=== PATIENT | female | born 1955 | race Caucasian/White ===

== ENCOUNTER → 2023-06-09 | Outpatient (CLI) | payer MEDICARE, BC | END | disposition home or self-care (01) | LOC: Rad HDHVI 15:05 | PROVIDERS: ATTEND Internal Medicine Cardiovascular Disease | DX: I73.9 Peripheral vascular disease, unspecified (principal) | CPT/HCPCS: 93306 ==

== ENCOUNTER → 2023-07-29 | Outpatient (CLI) | payer MEDICARE, BC ==
[2023-07-29 13:32] VITALS: BP 109/58; PULSE 80; RESP 20; O2SAT 96
[2023-07-29] MEDS: POTASSIUM CHL 10 Meq TABLET PO ONE (13:42)
[2023-07-29] MEDS: FUROSEMIDE INJECTION 10 ML ONE (13:42)
[2023-07-29 13:45] VITALS: BP 127/76; PULSE 77; RESP 20; O2SAT 96
[2023-07-29] MEDS: FUROSEMIDE 100 MG/10ML VIAL IV ONE (13:47)
[2023-07-29] MEDS: POTASSIUM CHL 20 Meq TABLET PO ONE (13:49)
== END | disposition home or self-care (01) ==
LOC: CHF HDHVI 13:30
PROVIDERS: ATTEND Internal Medicine Cardiovascular Disease
DX: R60.9 Edema, unspecified (principal); I25.10 Atherosclerotic heart disease of native coronary artery without angina pectoris; I10 Essential (primary) hypertension; I25.2 Old myocardial infarction; E78.00 Pure hypercholesterolemia, unspecified; I73.9 Peripheral vascular disease, unspecified
CPT/HCPCS: 96374; G0463; J1940

== ENCOUNTER → 2023-08-17 | Outpatient (CLI) | payer MEDICARE, BC ==
[2023-08-17 13:13] VITALS: BP 130/60; PULSE 75; RESP 18; O2SAT 95
[2023-08-17] MEDS: FUROSEMIDE 100 MG/10ML VIAL IV ONE (13:15)
[2023-08-17] MEDS: POTASSIUM CHL 20 Meq TABLET PO ONE ×2 (13:15→13:22)
[2023-08-17] MEDS: FUROSEMIDE 40 MG/4 ML VIAL ONE (13:22)
[2023-08-17 14:02] VITALS: BP 110/62; PULSE 69; RESP 18; O2SAT 98
== END | disposition home or self-care (01) ==
LOC: CHF HDHVI 13:10
PROVIDERS: ATTEND Internal Medicine Cardiovascular Disease
DX: I10 Essential (primary) hypertension (principal); I25.10 Atherosclerotic heart disease of native coronary artery without angina pectoris; I25.2 Old myocardial infarction; E78.00 Pure hypercholesterolemia, unspecified
CPT/HCPCS: 96374; G0463; J1940

== ENCOUNTER → 2023-08-31 | Outpatient (CLI) | payer MEDICARE, BC ==
[~2023-08-31] VITALS: Ht 30.5 cm; Wt 0.5 kg
[2023-08-31 12:12] VITALS: BP 100/55; PULSE 70; RESP 16; O2SAT 96
[2023-08-31] MEDS: POTASSIUM CHL 20 Meq TABLET PO ONE (12:12)
[2023-08-31] MEDS: POTASSIUM CHL 10 Meq TABLET PO ONE (12:19)
[2023-08-31] MEDS: FUROSEMIDE INJECTION 10 ML ONE (12:19)
[2023-08-31] MEDS: FUROSEMIDE 100 MG/10ML VIAL IV ONE (12:26)
[2023-08-31 13:28] VITALS: BP 113/46; PULSE 69; RESP 16; O2SAT 96
== END | disposition home or self-care (01) ==
LOC: CHF HDHVI 10:44
PROVIDERS: ATTEND Internal Medicine Cardiovascular Disease
DX: R60.9 Edema, unspecified (principal); I25.10 Atherosclerotic heart disease of native coronary artery without angina pectoris; I10 Essential (primary) hypertension; I25.2 Old myocardial infarction; E78.00 Pure hypercholesterolemia, unspecified; I73.9 Peripheral vascular disease, unspecified
CPT/HCPCS: 96374; G0463; J1940

== ENCOUNTER → 2023-09-07 | Outpatient (CLI) | payer MEDICARE, BC ==
[~2023-09-07] VITALS: Ht 30.5 cm; Wt 0.5 kg
[2023-09-07 11:35] VITALS: BP 133/63; PULSE 90; RESP 16; O2SAT 96
[2023-09-07] MEDS: FUROSEMIDE INJECTION 10 ML ONE (11:45)
[2023-09-07] MEDS: POTASSIUM CHL 10 Meq TABLET PO ONE (11:45)
[2023-09-07] MEDS: FUROSEMIDE 100 MG/10ML VIAL IV ONE (11:51)
[2023-09-07] MEDS: POTASSIUM CHL 20 Meq TABLET PO ONE (11:54)
[2023-09-07 12:15] VITALS: BP 114/58; PULSE 73; RESP 16; O2SAT 96
== END | disposition home or self-care (01) ==
LOC: CHF HDHVI 11:25
PROVIDERS: ATTEND Internal Medicine Cardiovascular Disease
DX: I10 Essential (primary) hypertension (principal); I25.10 Atherosclerotic heart disease of native coronary artery without angina pectoris; I25.2 Old myocardial infarction; E78.00 Pure hypercholesterolemia, unspecified
CPT/HCPCS: 96374; G0463; J1940

== ENCOUNTER → 2023-09-23 | Outpatient (CLI) | payer MEDICARE, BC ==
[2023-09-23 11:44] VITALS: BP 129/70; PULSE 81; RESP 16; O2SAT 93
[2023-09-23] MEDS: FUROSEMIDE INJECTION 10 ML ONE (11:53)
[2023-09-23] MEDS: POTASSIUM CHL 10 Meq TABLET PO ONE (11:53)
[2023-09-23] MEDS: FUROSEMIDE 100 MG/10ML VIAL IV ONE (12:06)
[2023-09-23] MEDS: POTASSIUM CHL 20 Meq TABLET PO ONE (12:08)
[2023-09-23 12:26] VITALS: BP 133/83; PULSE 76; RESP 16; O2SAT 93
== END | disposition home or self-care (01) ==
LOC: CHF HDHVI 11:34
PROVIDERS: ATTEND Internal Medicine Cardiovascular Disease
DX: R60.9 Edema, unspecified (principal); I10 Essential (primary) hypertension; I25.10 Atherosclerotic heart disease of native coronary artery without angina pectoris; I25.2 Old myocardial infarction; E78.00 Pure hypercholesterolemia, unspecified; I73.9 Peripheral vascular disease, unspecified
CPT/HCPCS: 96374; G0463; J1940

== ENCOUNTER → 2023-09-28 | Outpatient (CLI) | payer MEDICARE, BC | END | disposition home or self-care (01) | LOC: Rad HDHVI 12:13 | PROVIDERS: ATTEND Internal Medicine Cardiovascular Disease | DX: Z01.818 Encounter for other preprocedural examination (principal); Z79.899 Other long term (current) drug therapy | CPT/HCPCS: 71046 ==

== ENCOUNTER → 2023-10-07 | Outpatient (CLI) | payer MEDICARE, BC ==
[2023-10-07 11:20] VITALS: BP 129/73; PULSE 81; RESP 16; O2SAT 96
[2023-10-07] MEDS: POTASSIUM CHL 10 Meq TABLET PO ONE (11:26)
[2023-10-07] MEDS: FUROSEMIDE INJECTION 10 ML ONE (11:26)
[2023-10-07] MEDS: FUROSEMIDE 100 MG/10ML VIAL IV ONE (11:39)
[2023-10-07] MEDS: POTASSIUM CHL 20 Meq TABLET PO ONE (11:41)
[2023-10-07 12:00] VITALS: BP 123/75; PULSE 75; RESP 16; O2SAT 96
== END | disposition home or self-care (01) ==
LOC: CHF HDHVI 11:19
PROVIDERS: ATTEND Internal Medicine Cardiovascular Disease
DX: I10 Essential (primary) hypertension (principal); I25.10 Atherosclerotic heart disease of native coronary artery without angina pectoris; I25.2 Old myocardial infarction; R60.9 Edema, unspecified; E78.00 Pure hypercholesterolemia, unspecified; Z79.899 Other long term (current) drug therapy
CPT/HCPCS: 96374; G0463; J1940

== ENCOUNTER → 2023-12-23 | Outpatient (CLI) | payer MEDICARE, BC | END | disposition home or self-care (01) | LOC: Rad HDHVI 12:54 | PROVIDERS: ATTEND Internal Medicine Cardiovascular Disease | DX: M25.552 Pain in left hip (principal); Z98.890 Other specified postprocedural states ==

== ENCOUNTER 2024-01-19 12:50 | Emergency (ER) | payer MEDICARE, OTHER ==
[~2024-01-19] VITALS: Ht 152.4 cm; Wt 82.6 kg
[2024-01-19 14:32] VITALS: BP 143/98; PULSE 86; RESP 18; TEMP 99.2; O2SAT 98
[2024-01-19 14:48] LABS: Urine Bacteria None Seen /hpf (None Seen)
[2024-01-19 14:56] LABS: Basophils # (auto) 0.1 10 ^3/uL (0-0.2); Basophils % (auto) 0.8 % (0.0-2.0); Eosinophils # (auto) 0 10 ^3/uL (0-0.8); Eosinophils % (auto) 0.4 % (0.0-7.0); Hematocrit 39.1 % (36.0-46.0); Hemoglobin 13.1 g/dL (12.2-16.2); Lymphocytes # (auto) 1.8 10 ^3/uL (0.4-5.4); Lymphocytes % (auto) 23.2 % (10.0-50.0); Mean Corpuscular Hemoglobin 31.5 pg (28.0-32.0); Mean Corpuscular Hgb Conc. 33.5 g/dL (32.0-36.0); Mean Corpuscular Volume 93.9 fL (80.0-100.0); Monocytes # (auto) 0.5 10 ^3/uL (0-1.3); Monocytes % (auto) 6.3 % (0.0-12.0); Neutrophils # (auto) 5.3 10 ^3/uL (1.6-8.6); Neutrophils % (auto) 69.3 % (37.0-80.0); Nucleated Red Blood Cells % 0.1 %; Platelet Count (auto) 386 10^3/uL (140-450); Red Blood Cells 4.16 10^6/uL (4.0-5.20); Red Cell Distribution Width 14.7 % (11.8-14.3); White Blood Cell 7.6 10^3/uL (4.4-10.8)
[2024-01-19 15:03] LABS: Chloride 109 mmol/L (98-107); Potassium 3.6 mmol/L (3.5-5.1); Sodium 141 mmol/L (136-145)
[2024-01-19 15:04] LABS: Anion Gap 11 (5-15); Carbon Dioxide 21 mmol/L (20-31)
[2024-01-19 15:05] LABS: Calcium 10.8 mg/dL (8.7-10.4)
[2024-01-19 15:05] LABS: Urine Blood Negative /uL (Negative); Urine Clarity Clear (Clear); Urine Color Light-Yellow (Yellow); Urine Protein, UAD Negative (Negative); Urine Specific Gravity 1.014 (1.001-1.035); Urine Urobilinogen Normal (Negative); Urine WBC 1 /hpf (0 - 5); Urine pH 5.5 (5.0-9.0)
[2024-01-19 15:09] LABS: BUN/Creatinine Ratio 13.9 (10.0-20.0); Blood Urea Nitrogen 10 mg/dL (9-23); Glucose 92 mg/dL (74-106)
[2024-01-19] MEDS ORDERED: CIPR-173 PO (16:11)
[2024-01-19] MEDS ORDERED: PHEN-922 PO (16:11)
== END 2024-01-19 16:26 | disposition home or self-care (01) ==
LOC: EDBD 12:50 → ER 12:57
DX: K44.9 Diaphragmatic hernia without obstruction or gangrene (principal); R68.89 Other general symptoms and signs; I50.9 Heart failure, unspecified; I25.2 Old myocardial infarction; Z96.612 Presence of left artificial shoulder joint; Z96.643 Presence of artificial hip joint, bilateral; Z88.8 Allergy status to other drugs, medicaments and biological substances; Z79.899 Other long term (current) drug therapy
CPT/HCPCS: 36415; 74176; 80048; 81001; 85025

== ENCOUNTER → 2024-02-24 | Outpatient (CLI) | payer MEDICARE, BC ==
[~2024-02-24] MED LIST: CIPR-173 PO; IOHEXOL 350 MG/ML 100ML IJ ONE; PHEN-922 PO
[2024-02-24 11:20] VITALS: BP 113/60; PULSE 78; RESP 18; O2SAT 99
[2024-02-24 11:45] VITALS: BP 125/61; PULSE 78; RESP 18; O2SAT 96
--- NOTE | 2024-02-24 13:04 | DVH ---
Procedure: CT CT AB PEL WITH IV CON ONLY 02/24/2024 11:32 AM Indication:URINARY RETENTION. Comparison Study: None available at time of dictation. Technique: Axial images were obtained and reformatted in coronal and sagittal planes. All CT scans at this medical facility are performed using dose modulation techniques as appropriate t o a performed exam including the following: Automated exposure control was utilized; adjustment of th e MA and/or KV according to patient size; and use of iterative reconstruction technique. CT Dose: CTDI volume is 25.92 mGy. Dose-length product is 1088.26 mGy*cm FINDINGS: Lower Chest: Unremarkable. Hepatobiliary: Moderate hepatomegaly, 22 cm in craniocaudal. No focal lesion. No intrahepatic or ext rahepatic ductal dilatation. Spleen: Unremarkable. Pancreas: Unremarkable. Adrenal Glands: Unremarkable. tract: The kidneys are normal in size bilaterally without hydronephrosis or nephrolithiasis. Multi ple simple appearing right renal cysts measuring up to 1.3 cm at midpole. The urinary bladder is olimpia luated due to beam hardening artifact from the orthopedic hardware. GI tract: A small sliding hiatal hernia noted. No evidence of small bowel obstruction. The large jourdan l is unremarkable. Moderate fecal retention noted. The appendix is not visualized. No inflammatory c hange is noted in the right lower quadrant. Lymphatics: No mesenteric, retroperitoneal or periportal lymphadenopathy. Vasculature: Aorta is normal in caliber. Scattered calcified plaques are noted. Pelvic Organs: Unremarkable Bones/soft tissues: No acute abnormality. Bilateral total hip arthroplasty. Postoperative changes of the lower lumbar spine. Thoracolumbar scoliosis and advanced multilevel degenerative disc disease. Other: None. IMPRESSION: 1. No CT evidence for acute intra-abdominal or intrapelvic process. 2. No hydronephrosis, hydroureter or ureterolithiasis. Urinary bladder is incompletely evaluated due to strong beam hardening artifact from the orthopedic hardware. 3. Hepatomegaly. 4. Atherosclerotic disease.
== END | disposition home or self-care (01) ==
LOC: Rad HDHVI 10:52
PROVIDERS: ATTEND Internal Medicine Cardiovascular Disease
DX: R16.0 Hepatomegaly, not elsewhere classified (principal); K44.9 Diaphragmatic hernia without obstruction or gangrene; N28.1 Cyst of kidney, acquired; I70.0 Atherosclerosis of aorta; R33.9 Retention of urine, unspecified
CPT/HCPCS: 74177; G0463; Q9967

== ENCOUNTER → 2024-05-07 | Outpatient (CLI) | payer OTHER ==
[~2024-05-07] MED LIST changes: -IOHEXOL 350 MG/ML 100ML IJ ONE
== END | disposition home or self-care (01) ==
LOC: Rad HDHVI 10:48
PROVIDERS: ATTEND Internal Medicine Cardiovascular Disease
DX: R60.9 Edema, unspecified (principal)
CPT/HCPCS: 93970

== ENCOUNTER 2024-12-23 16:37 | Inpatient (IN) | payer MEDICARE, OTHER ==
[~2024-12-23] VITALS: Ht 152.4 cm; Wt 95.8 kg
[2024-12-23] MEDS: SODIUM CHLORIDE 0.9% 250 ML IV ONE (01:00)
--- NOTE | 2024-12-23 16:52 | ECG ---
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
--- NOTE | 2024-12-23 17:36 | ECG ---
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
--- NOTE | 2024-12-23 18:54 | DVH ---
EXAM: XY CHEST PORTABLE HISTORY: cp TECHNIQUE: 1 view of the chest COMPARISON: XR CHEST 2 VIEW on DOS: 07/16/24 FINDINGS/IMPRESSION: LUNGS: No pleural effusion, consolidation, or pneumothorax MEDIASTINUM: Unremarkable BONES: No acute osseous abnormality. Cervicothoracic fusion OTHER: None
[2024-12-23 19:20] LABS: Hematocrit 38.3 % (36.0-46.0); Hemoglobin 13.0 g/dL (12.2-16.2); Mean Corpuscular Hemoglobin 32.7 pg (28.0-32.0); Mean Corpuscular Volume 96.2 fL (80.0-100.0); Nucleated Red Blood Cells % 0.0 %
[2024-12-23 19:33] LABS: Potassium 3.6 mmol/L (3.5-5.1); Sodium 141 mmol/L (136-145)
[2024-12-23 19:34] LABS: Anion Gap 11 (5-15); Calcium 10.0 mg/dL (8.7-10.4); Carbon Dioxide 21 mmol/L (20-31)
[2024-12-23 19:39] LABS: BUN/Creatinine Ratio 20.7 (10.0-20.0); Glucose 95 mg/dL (74-106)
--- NOTE | 2024-12-23 19:39 | ECG ---
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
[2024-12-23 19:48] LABS: Blood Urea Nitrogen 24 mg/dL (9-23); Chloride 109 mmol/L (98-107)
--- NOTE | 2024-12-23 19:57 | ED.PDOC ---
HPI Comments 69 y.o female with PMHx of CHF, UTI's, sepsis, and foot drop, presents to the ED via EMS for a chief complaint of intermittent sternal chest pain associated with sweats, urinary dysuria, urgency, nausea, diarrhea and vomiting 1 week. Patient describes pain as sharp and intermittent with no active pain on assessment. Patient states she had similar episode in when she was in [place] for a month, was diagnosed with a UTI and prescribed doxycycline. Patient does mention ongoing painful urination with no abdominal pain, flank pain, hematuria, or fever reported. Chief Complaint: Chest Pain Time Seen by MD: 19:43 Primary Care Provider: FRANK Reviewed Notes: Nurses Notes, Medications, Allergies Allergies: Coded Allergies: Latex (Verified Allergy, Unknown, 12/23/24) Phenyl Acetate (Verified Allergy, Unknown, 06/14/23) Home Meds Active Scripts Phenazopyridine HCl (Phenazopyridine Hydrochlo) 200 Mg Tab, 200 MG PO TID, #6 TAB Prov:HANNAH BEAUCHAMP 01/19/24 Ciprofloxacin Hcl (Cipro) 500 Mg Tab, 1 TAB PO BID, #14 TAB Prov:HANNAH BEAUCHAMP 01/19/24 Information Source: Patient Mode of Arrival: EMS Timing: Weeks (1) Duration: Intermittent Location: Substernal Radiation: No Radiation Quality: Sharp Onset: At Rest Cardiac Risk Factors: Other PE Risk Factors: None History of: IA Modifying Factors: Nothing Associated Signs and Symptoms: N/V Past Medical History PAST MEDICAL HISTORY: CHF, Kidney Stones, [place], UTI'S Surgical History: PTCA Surgical History (Other): multiple orthopedic sx [employer]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 Hx Family History Family History: Reviewed,noncontributory to illness Social History Smoker: Non-Smoker Alcohol: Denies ETOH Use Drugs: Denies Drug Use Lives In: Home Constitutional: reports: sweats; denies: chills, diaphoresis, fatigue, fever, malaise, weakness, others EENTM: denies: blurred vision, double vision, ear bleeding, ear discharge, ear drainage, ear pain, ear ringing, eye pain, eye redness, hearing loss, mouth pain, mouth swelling, nasal discharge, nose bleeding, nose congestion, nose pain, photophobia, tearing, throat pain, throat swelling, voice changes, others Respiratory: denies: cough, hemoptysis, orthopnea, SOB at rest, shortness of breath, SOB with excertion, stridor, wheezing, others Cardiovascular: reports: chest pain; denies: dizzy spells, diaphoresis, Dyspnea on exertion, edema, irregular heart beat, left arm pain, lightheadedness, palpitations, PND, syncope, others Gastrointestinal: reports: diarrhea, nausea, vomiting; denies: abdomen distended, abdominal pain, blood streaked bowels, constipated, dysphagia, difficulty swallowing, hematemesis, melena, poor appetite, poor fluid intake, rectal bleeding, rectal pain, others Genitourinary: reports: urgency; denies: abnormal vagina bleeding, burning, dyspareunia, dysuria, flank pain, frequency, hematuria, incontinence, pain, , vagina discharge, others Neurological: denies: dizziness, fainting, headache, left sided numbness, left sided weakness, numbness, paresthesia, pre-existing deficit, right sided numbness, right sided weakness, seizure, speech problems, tingling, tremors, weakness, others Musculoskeletal: denies: back pain, gout, joint pain, joint swelling, muscle pain, muscle stiffness, neck pain, others Integumetry: denies: bruises, change in color, change in hair/nails, dryness, laceration, lesions, lumps, rash, wounds, others Allergic/Immunocompromised: denies: Difficulty Healing, Frequent Infections, Hives, Itching, others Hematologic/Lymphatic: denies: anemia, blood clots, easy bleeding, easy bruising, swollen glands, others Endocrine: denies: excessive hunger, excessive sweating, excessive thirst, excessive urination, flushing, intolerance to cold, intolerance to heat, unexplained weight gain, unexplained weight loss, others Psychiatric: denies: anxiety, bipolar disorder, depression, hopeless, panic disorder, schizophrenia, sleepless, suicidal, others All Other Systems: Reviewed and Negative Physical Exam General Appearance: No Apparent Distress HEENT: Other (Pupils and face symmetric. Moist mucous membranes.) Neck: Full Range of Motion, Normal Inspection Respiratory: Lungs Clear, No Accessory Muscle Use, No Respiratory Distress, Normal Breath Sounds Cardiovascular: No Edema, No JVD, Tachycardia Breast Exam: Deferred Gastrointestinal: Non Tender, Soft Genitalia: Deferred Pelvic: Deferred Rectal: Deferred Extremities: Normal inspection, Normal range of motion, Non-tender, No pedal edema Neurologic: Alert (Oriented x4), Normal Affect, Normal Mood, Other (No gross focal deficit) Cerebellar Function: NOT DONE Reflexes: NOT DONE Skin: Dry, Normal Color, Warm Lymphatic: NOT DONE EKG EKG : Comments Sinus tach, rate 101, normal intervals, normal axis, normal QRS, inferio r/lateral ST depression with T-wave inversion Was a procedure done? Was a procedure done?: No CP Differential Dx Differential Diagnosis: N/A Differential Diagnosis: Angina, Chest Wall Pain, Costochondritis, Myocardial Infarction, Pericarditis, Other (UTI) X-Ray, Labs, Meds, VS Vital Signs Date Time Temp Pulse Resp B/P (MAP) Pulse Ox O2 Delivery O2 Flow Rate FiO2 12/23/24 19:37 101 12/23/24 17:35 108 12/23/24 16:44 98.3 16 18 124/91 100 98.3 12/23/24 16:42 110 Lab Test 12/23/24 22:20 12/23/24 20:40 12/23/24 19:07 12/23/24 16:59 Range/Units Urine Color Yellow Yellow Urine Clarity Clear Clear Urine pH 5.5 5.0-9.0 Urine Specific Mcdavid 1.034 1.001-1.035 Urine Protein Trace H Negative Urine Ketones 1+ H Negative Urine Blood Negative Negative /uL Urine Nitrite Negative Negative Urine Bilirubin Negative Negative Urine Urobilinogen Normal Negative mg/dL Urine Leukocyte Esterase 1+ Negative /uL Urine RBC 4 0 - 4 /hpf Urine Microscopic WBC 3 0-5 /HPF Urine Squamous Epithelial Cells Few <5 /hpf Urine Calcium Oxalate Crystals Few None Seen Urine Bacteria None seen None Seen /hpf Urine Mucus Few None Seen Urine Glucose Normal Normal mg/dL Troponin I High Sensitivity 10 9 7 </=34 ng/L Lactic Acid Level 1.9 0.4-2.0 mmol/L White Blood Count 11.4 H 4.4-10.8 10^3/uL Red Blood Count 3.98 L 4.0-5.20 10^6/uL Hemoglobin 13.0 12.2-16.2 g/dL Hematocrit 38.3 36.0-46.0 % Mean Corpuscular Volume 96.2 80.0-100.0 fL Mean Corpuscular Hemoglobin 32.7 H 28.0-32.0 pg Mean Corpuscular Hemoglobin Concent 34.0 32.0-36.0 g/dL Red Cell Distribution Width 14.0 11.8-14.3 % Platelet Count 376 140-450 10^3/uL Mean Platelet Volume 9.1 6.9-10.8 fL Neutrophils (%) (Auto) 72.5 37.0-80.0 % Lymphocytes (%) (Auto) 18.4 10.0-50.0 % Monocytes (%) (Auto) 8.5 0.0-12.0 % Eosinophils (%) (Auto) 0.2 0.0-7.0 % Basophils (%) (Auto) 0.4 0.0-2.0 % Neutrophils # (Auto) 8.3 1.6-8.6 10 ^3/uL Lymphocytes # (Auto) 2.1 0.4-5.4 10 ^3/uL Monocytes # (Auto) 1.0 0-1.3 10 ^3/uL Eosinophils # (Auto) 0 0-0.8 10 ^3/uL Basophils # (Auto) 0 0-0.2 10 ^3/uL Nucleated Red Blood Cells 0.0 % Sodium Level 141 136-145 mmol/L Potassium Level 3.6 3.5-5.1 mmol/L Chloride Level 109 H 98-107 mmol/L Carbon Dioxide Level 21 20-31 mmol/L Anion Gap 11 5-15 Blood Urea Nitrogen 24 H 9-23 mg/dL Creatinine 1.16 H 0.550-1.02 mg/dL Glomerular Filtration Rate Calc 50 >90 mL/min BUN/Creatinine Ratio 20.7 H 10.0-20.0 Serum Glucose 95 74-106 mg/dL Calcium Level 10.0 8.7-10.4 mg/dL B-Type Natriuretic Peptide 26.77 0-100 pg/mL Lipase 22 12-53 U/L PROCEDURE(s): CXRP - CHEST PORTABLE REASON: cp ORDER NUMBER(s): [id number], ACCESSION NUMBER(s): [id number] EXAM: XY CHEST PORTABLE HISTORY: cp TECHNIQUE: 1 view of the chest COMPARISON: XR CHEST 2 VIEW on DOS: 07/16/24 FINDINGS/IMPRESSION: LUNGS: No pleural effusion, consolidation, or pneumothorax MEDIASTINUM: Unremarkable BONES: No acute osseous abnormality. Cervicothoracic fusion OTHER: None X-Ray, Labs, Meds, VS Comment 69 y.o female with PMHx of CHF, UTI's, sepsis, and foot drop, presents to the ED via EMS for a chief complaint of intermittent sternal chest pain associated with sweats, urinary dysuria, urgency, nausea, diarrhea and vomiting 1 week Vitals remarkable for heart rate 110, BP 124/91 Exam remarkable for tachycardia Rhythm strip independently interpreted by me: Sinus tach, rate 101, no ectopy. Chest x-ray unremarkable CBC remarkable for WBC 11.4, metabolic panel remarkable for BUN 24, creatinine 1.16, BNP, troponins, lactate and lipase unremarkable Patient treated with the following in the ED: Aspirin 325 mg p.o., nitro bid 1/2 inch to chest wall, Rocephin 1 g IV On re-evaluation, patient is chest pain-free with stable vitals. Plan is to admit the patient for ongoing serial troponins, Cardiology evaluation, and IV antibiotics. Time of 1ST Reevaluation: 19:52 Reevaluation 1ST: Unchanged Patient Education/Counseling: Diagnosis, Treatment, Prognosis Family Education/Counseling: No Family Present SEPSIS Sepsis Screen Date sepsis recognized/suspect: Dec 23, 2024 Time Sepsis recognized/suspect: 1643 Recent Procedure: No On Antibiotic Therapy: No Respiratory Rate >20: No Heart Rate >90: Yes Temp<36 C (96.8 F) or >38.3 C: No SBP <90 or MAP <65 mmHG: No New Acute Mental Status Change: No Is the patient on CPAP, BIPAP,: No SEPSIS EXCLUSION NOTE: Sepsis Exclusion Note: Patient presents with SIRS criteria, but the SIRS response is attributed to [pain/discomfort ], not sepsis. Sepsis bundle is not initiated at this time, due to this reason. Further management will focus on the treatment of the above condition (s). Physician Orders Chest Portable (12/23/24 17:57) Blood Culture (12/23/24 19:59) Vital Signs Date Time Temp Pulse Resp B/P (MAP) Pulse Ox O2 Delivery O2 Flow Rate FiO2 12/23/24 19:37 101 12/23/24 17:35 108 12/23/24 16:44 98.3 16 18 124/91 100 98.3 12/23/24 16:42 110 Laboratory Tests Test 12/23/24 16:59 12/23/24 19:07 White Blood Count 11.4 10^3/uL (4.4-10.8) H Lactic Acid Level 1.9 mmol/L (0.4-2.0) Departure 1 Departure Time of Disposition: 22:00 Impression: Primary Impression: Chest pain with high risk for cardiac etiology Additional Impression: UTI (urinary tract infection) Disposition: ADMITTED INPATIENT Admit to: Tele Condition: Guarded Critical Care Note Critical Care Time?: No Stability Stability form required: No Heart Score Heart Score: Heart Score Response (Comments) Value History Highly Suspicious [address]-Deviation 2 Age 45-64 1 Risk Factors >3 or Hx ASHD 2 Troponin Normal limit 0 Total 7 I personally scribed for SHOBHA EVANS MD ([email or web address]) on 12/23/24 at 19:57. Electronically submitted by Navya Villafuerte ([facility]). SHOBHA EVANS MD Dec 23, 2024 19:57
[2024-12-23] MEDS: NITROGLYCERIN 2% OINT 1GM PKG TD ONE (20:00)
[2024-12-23 22:40] LABS: Urine Protein, UAD TRACE (Negative)
--- NOTE | 2024-12-23 23:57 | DVHHPRES ---
History of Present Illness Resident Creating Document: SU KENNEDY RESIDENT History of Present Illness History of Present Illness (HPI): Hailey Lopez is a 69-year-old female with a complex medical history including recurrent urinary tract infections, osteoarthritis, coronary artery disease, congestive heart failure, foot drop, hypertension, and anxiety presented with complaints of urinary urgency, vomiting, chills, chest pain, shortness of breath, palpitations, and diarrhea. The chest pain is described as pressure-like, intermittent, radiating to both arms, and rated 5 out of 10 in intensity, with no clear triggers or relieving factors. She also notes a significant unintentional weight loss of 10 pounds and a marked decrease in appetite. Additionally, she complains of a burning sensation in her stomach and persistent chills. The patient mentioned that she was in [place] a week ago when these symptoms began and was evaluated by a physician there, who prescribed doxycycline. She is currently non-ambulatory due to foot drop and requires full assistance with activities of daily living. Past Medical History (PMH): recurrent urinary tract infections, osteoarthritis, coronary artery disease, congestive heart failure, foot drop, hypertension, and anxiety Past Surgical History (PSH): Bilateral knee and hip replacement, spine surgery Family history (FH): History of pulmonary embolism in mother EtOH: Occasional alcohol use Smoking /Vaping: Patient denies smoking Recreational Drugs: Patient denies recreational drug use Residence: Lives with Home Medications: Bupropion, Arthrotec, gabapentin, Ativan Allergies: Phenyl acetate,erythromycin, latex PCP: Dr. Prado Specialist relevant to admission: Nonrelevant Review of Systems Review of Systems General: patient denies fever, fatigue, weaknes, sweating, any recent changes in appetite and weight HEENT: No headaches, visiual changes, hearing loss, tinnitus, nasal congestion and discharge, and sore throat. Cardiovascular: Denies dyspnea on exertion, orthopnea, or claudication. Complains of palpitations and chest pain Respiratory: No cough, and wheezing. Gastrointestinal: Complains of nausea, vomiting, diarrhea, decreased appetite Genitourinary: Complains of urinary frequency and urgency Endocrine: No heat or cold intolerance, polydipsia, polyuria, and polyphagia. Neurological: No dizziness, extremity weakness and numbness, tremors, gait disturbance, seizures, and memory impairment. Psychiatric: Denies depression, anxiety,or insomnia. Musculoskeletal: Denies neck pain, stiffness and swelling, back pain, muscle weakness, joint pain, stiffness, swelling, or limited range of motion. Skin: No rashes, itching, skin lesion, changes in hair, nail, skin texture and breast. Hematologic/Lymphatic: Denies easy bruising, bleeding tendencies, or lymph node enlargement. Allergies: Coded Allergies: Latex (Verified Allergy, Unknown, 12/23/24) Phenyl Acetate (Verified Allergy, Unknown, 06/14/23) Exam Vital Signs Vital Signs Date Time Temp Pulse Resp B/P (MAP) Pulse Ox O2 Delivery O2 Flow Rate FiO2 12/23/24 19:37 101 12/23/24 16:44 98.3 18 124/91 100 98.3 Exam General Appearance: Alert, Oriented X3, Cooperative, No acute distress HEENT: Atraumatic, PERRLA, EOMI, Mucous membrane dry Respiratory: Clear to auscultation, Normal air movement Cardiovascular: Regular rate, Normal S1, Normal S2, No murmurs, no chest wall tenderness Abdominal: Diffuse abdominal tenderness present, abdomen soft Extremities: No clubbing, No cyanosis, No edema, Normal pulses, No tenderness/swelling Skin: Rashes present on bilateral forearms, No breakdown, No significant lesion Neuro: Normal gait, Normal speech, Strength at 5/5 X4 ext, Normal tone, Sensation intact, Cranial nerves 3-12 NL, Reflexes 2+ Psych/Mental Status: Mental status NL, Mood NL Labs/Xrays Labs Test 12/23/24 22:20 12/23/24 20:40 12/23/24 19:07 12/23/24 16:59 Range/Units Urine Color Yellow Yellow Urine Clarity Clear Clear Urine pH 5.5 5.0-9.0 Urine Specific [place] 1.034 1.001-1.035 Urine Protein Trace H Negative Urine Ketones 1+ H Negative Urine Blood Negative Negative /uL Urine Nitrite Negative Negative Urine Bilirubin Negative Negative Urine Urobilinogen Normal Negative mg/dL Urine Leukocyte Esterase 1+ Negative /uL Urine RBC 4 0 - 4 /hpf Urine Microscopic WBC 3 0-5 /HPF Urine Squamous Epithelial Cells Few <5 /hpf Urine Calcium Oxalate Crystals Few None Seen Urine Bacteria None seen None Seen /hpf Urine Mucus Few None Seen Urine Glucose Normal Normal mg/dL Troponin I High Sensitivity 10 </=34 ng/L Lactic Acid Level 1.9 0.4-2.0 mmol/L White Blood Count 11.4 H 4.4-10.8 10^3/uL Red Blood Count 3.98 L 4.0-5.20 10^6/uL Hemoglobin 13.0 12.2-16.2 g/dL Hematocrit 38.3 36.0-46.0 % Mean Corpuscular Volume 96.2 80.0-100.0 fL Mean Corpuscular Hemoglobin 32.7 H 28.0-32.0 pg Mean Corpuscular Hemoglobin Concent 34.0 32.0-36.0 g/dL Red Cell Distribution Width 14.0 11.8-14.3 % Platelet Count 376 140-450 10^3/uL Mean Platelet Volume 9.1 6.9-10.8 fL Neutrophils (%) (Auto) 72.5 37.0-80.0 % Lymphocytes (%) (Auto) 18.4 10.0-50.0 % Monocytes (%) (Auto) 8.5 0.0-12.0 % Eosinophils (%) (Auto) 0.2 0.0-7.0 % Basophils (%) (Auto) 0.4 0.0-2.0 % Neutrophils # (Auto) 8.3 1.6-8.6 10 ^3/uL Lymphocytes # (Auto) 2.1 0.4-5.4 10 ^3/uL Monocytes # (Auto) 1.0 0-1.3 10 ^3/uL Eosinophils # (Auto) 0 0-0.8 10 ^3/uL Basophils # (Auto) 0 0-0.2 10 ^3/uL Nucleated Red Blood Cells 0.0 % Sodium Level 141 136-145 mmol/L Potassium Level 3.6 3.5-5.1 mmol/L Chloride Level 109 H 98-107 mmol/L Carbon Dioxide Level 21 20-31 mmol/L Anion Gap 11 5-15 Blood Urea Nitrogen 24 H 9-23 mg/dL Creatinine 1.16 H 0.550-1.02 mg/dL Glomerular Filtration Rate Calc 50 >90 mL/min BUN/Creatinine Ratio 20.7 H 10.0-20.0 Serum Glucose 95 74-106 mg/dL Calcium Level 10.0 8.7-10.4 mg/dL B-Type Natriuretic Peptide 26.77 0-100 pg/mL Lipase 22 12-53 U/L SEPSIS Sepsis Screen Date sepsis recognized/suspect: Dec 23, 2024 Time Sepsis recognized/suspect: 1643 Recent Procedure: No On Antibiotic Therapy: No Respiratory Rate >20: No Heart Rate >90: Yes Temp<36 C (96.8 F) or >38.3 C: No SBP <90 or MAP <65 mmHG: No New Acute Mental Status Change: No Is the patient on CPAP, BIPAP,: No Physician Orders Chest Portable (12/23/24 17:57) Blood Culture (12/23/24 19:59) Admit (12/23/24 23:24) Allergies (12/23/24 23:24) Code Status (12/23/24 23:24) Fall Risk Precautions In Place QSHIFT (12/23/24 23:24) Complete Blood Count (12/24/24 04:00) Comprehensive Metabolic Panel (12/24/24 04:00) Condition: Fair (12/23/24 23:24) Clear Liq Diet (12/24/24 Breakfast) Sodium Chloride 0.9% (12/23/24 23:45) Lactic Acid W/ Reflex Order (12/23/24 23:38) Vital Signs Date Time Temp Pulse Resp B/P (MAP) Pulse Ox O2 Delivery O2 Flow Rate FiO2 12/23/24 19:37 101 12/23/24 17:35 108 12/23/24 16:44 98.3 16 18 124/91 100 98.3 12/23/24 16:42 110 Laboratory Tests Test 12/23/24 16:59 12/23/24 19:07 White Blood Count 11.4 10^3/uL (4.4-10.8) H Lactic Acid Level 1.9 mmol/L (0.4-2.0) Assessment/Plan Assessment/Plan Assessment and plan # Sepsis due to ? urinary tract infection/gastroenteritis - IV fluids - IV Zosyn - Follow-up blood,stool and urine cultures - Follow lactic acid levels - Proceed IV fluids with caution since patient has CHF, no active exacerbation # ? 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 Barriers to discharge: Medical diagnosis and management in progress. Patient lives with family. Need person support for ADL. PT and SW consult as needed. PCP: Dr. Prado Specialist Relevant To Admission: Relevant Case discussed with Dr. Maxwell. Code Status: Full Code. Complex patient care discussion needed. Spend total 35 minutes for bedside assessment, case discussion and management. Plan discussed with: Patient My Orders Orders - SU KENNEDY RESIDENT Procedure Category Date Status Time Admit ADMIT 12/23/24 Transmitted 23:24 Allergies TRACEE 12/23/24 In Process 23:24 Code Status CODE 12/23/24 Transmitted 23:24 Fall Risk Precautions TRACEE 12/23/[address] 23:24 Complete Blood Count LAB 12/24/24 Verified 04:00 Comprehensive LAB 12/24/24 Verified Metabolic Panel 04:00 Condition: Fair TRACEE 12/23/24 In Process 23:24 Clear Liq Diet DIET 12/24/24 Transmitted Breakfast Sodium Chloride 0.9% PHA 12/23/24 In Process 23:45 Lactic Acid W/ Reflex LAB 12/23/24 Logged Order 23:38 Date of Service: Dec 23, 2024 Billing Provider: COMPA MAXWELL MD Common Visit Codes: 10750-[id number] INP/OBS CARE (HIGH) Secondary Visit Codes: 11170-[id number] CARE PLAN 30 MINUTES SU KENNEDY RESIDENT Dec 23, 2024 23:57 SHAHEEN MANN RESIDENT Dec 24, 2024 04:17
[2024-12-24 01:05] VITALS: PULSE 100; RESP 16; O2SAT 100
[2024-12-24] MEDS: SODIUM CHLORIDE 0.9% 500 ML IV ONE (01:36)
--- NOTE | 2024-12-24 01:40 | DVH ---
Exam: CT CT AB PEL WO CON-NO ORAL OR IV History: abd pain and diarhhea Comparison Study: XR PELVIS 1-2 VIEW on DOS: 07/16/24, CT CT AB PEL WITH IV CON ONLY on DOS: 02/24/24, CT CT AB PEL WO CON-NO ORAL OR IV on DOS: 01/19/24 Technique: Multidetector spiral CT of the abdomen was performed from lung bases to pubic symphysis. I maging was performed without IV contrast. Axial, coronal and sagittal multiplanar reformats were obta ined from the axial data set by the technologist. Radiation Dose : 1. Abdomen/Pelvis: CTDIvol 26.54 mGy, DLP 1034.49 mGy*cm. Findings: Evaluation of solid organs is limited due to lack of intravenous contrast use. Lung Bases: No acute or significant lung base finding. Normal heart size. No pleural effusion. Trac e pericardial effusion. Liver: The liver is enlarged, measuring 20.7 cm in craniocaudal dimension. No focal lesions. Gallbladder and Biliary Tree: Moderate gallbladder distention. Spleen: Unremarkable Pancreas: The pancreas is grossly normal in appearance. Adrenal Glands: Unremarkable Kidneys: Kidneys are grossly normal without calculi or hydronephrosis. 1.3 cm exophytic right interpo lar renal cortical cyst. Bladder: Grossly unremarkable for degree of distention. Bowel: The stomach is grossly normal in appearance. Small bowel and colon are normal in caliber and d istribution. The appendix is normal. Ascites: Absent Lymphadenopathy: No mesenteric, retroperitoneal or periportal lymphadenopathy. Abdominal Wall and Mesentery: Unremarkable. Vasculature: The visualized abdominal aorta is normal in size and caliber. Atherosclerotic vascular c alcifications. Evaluation of abdominal and pelvic vessels is limited due to lack of intravenous cont rast. Pelvic Organs: Unremarkable Musculoskeletal: No aggressive focal bony lesions, acute fractures or dislocation. Hardware within th e lumbar spine status post L3-L4 posterior lumbar interbody fusion with L4-L5 interbody disc spacer. No evidence of hardware complication. Hardware within the bilateral hips status post arthroplasty wi th associated beam hardening artifact, partially obscuring the findings of the pelvis. IMPRESSION: 1. No acute abdominal or pelvic findings. 2. Hepatomegaly. 3. Moderate nonspecific gallbladder distention. Radiation optimization: All CT scans at this facility use at least one of these dose optimization katina hniques: automated exposure control mA and/or kV adjustment per patient size (includes targeted exam s where dose is matched to clinical indication) or iterative reconstruction.
[2024-12-24 02:22] LABS: Amphetamine Screen, Urine Neg (NEGATIVE)
[2024-12-24 02:23] LABS: Cannabinoid Screen, Urine Pos (NEGATIVE)
[2024-12-24 02:33] LABS: Barbiturate Scree,Urine Neg (NEGATIVE); Benzodiazephine Screen, Urine Neg (NEGATIVE); Cocaine Screen, Urine Neg (NEGATIVE); Opiate Scree,Urine Neg (NEGATIVE); Phencyclidine Screen, Urine Neg (NEGATIVE)
[2024-12-24] MEDS: HYDROcodone-ACET 5/325MG TAB PO ONE (03:19)
[2024-12-24] MEDS ORDERED: LORA-1121 PO (04:27)
[2024-12-24] MEDS ORDERED: BACL10TA PO (04:27)
[2024-12-24] MEDS ORDERED: GABA800T97 PO (04:27)
[2024-12-24] MEDS ORDERED: BUPR-60 PO (04:27)
[2024-12-24] MEDS ORDERED: HYDR1TAB97 (04:27)
[2024-12-24 05:43] LABS: Hematocrit 34.8 % (36.0-46.0); Hemoglobin 12.0 g/dL (12.2-16.2); Mean Corpuscular Hemoglobin 32.9 pg (28.0-32.0); Mean Corpuscular Volume 95.7 fL (80.0-100.0); Nucleated Red Blood Cells % 0.0 %
[2024-12-24 06:00] LABS: Albumin 4.1 g/dL (3.2-4.8); Alkaline Phosphatase 92 U/L (46-116); Anion Gap 11 (5-15); BUN/Creatinine Ratio 18.3 (10.0-20.0); Bilirubin, Total 0.5 mg/dL (0.2-1.0); Blood Urea Nitrogen 19 mg/dL (9-23); Calcium 9.5 mg/dL (8.7-10.4); Carbon Dioxide 23 mmol/L (20-31); Chloride 107 mmol/L (98-107); Glucose 98 mg/dL (74-106); Potassium 3.5 mmol/L (3.5-5.1); Sodium 141 mmol/L (136-145); Total Protein 6.7 g/dL (5.7-8.2)
[2024-12-24 06:12] LABS: Alanine Aminotransferase < 9 U/L (7-40); Uric Acid 9.3 mg/dL (3.1-7.8)
[2024-12-24] MEDS: PIPERACILLIN-TAZO 4.5GM 100 ML IV ONE (06:25)
[2024-12-24 07:26] LABS: Bilirubin, Direct 0.2 mg/dL (<0.3)
[2024-12-24 08:20] VITALS: PULSE 92; RESP 12; O2SAT 99
[2024-12-24] MEDS: PIPERACILLIN-TAZOB 3.375GM 100 ML IV SCH (08:47)
--- NOTE | 2024-12-24 08:59 | DVH ---
INDICATION: hepatomegaly TECHNIQUE: Multiple real-time sonographic images of the abdomen were obtained. COMPARISON: None FINDINGS: The liver is heterogeneous in echogenicity. The liver measures 20cm. No intrahepatic bilia ry ductal dilatation is noted. The gallbladder wall measures 0.2 cm and is unremarkable. No gallstones or sludge is seen. The commo n duct measures 0.3 cm and is unremarkable. No pericholecystic fluid is noted. The right kidney measures 8cm. No hydronephrosis. The pancreas is not well visualized due to obscuration from bowel gas. The visualized portions of the IVC and aorta are grossly unremarkable. IMPRESSION: Hepatomegaly/hepatic steatosis.
[2024-12-24] MEDS: ALLOPURINOL 100 MG TAB PO SCH (10:57)
[2024-12-24] MEDS: BACLOFEN 10 MG TAB PO SCH (10:58)
[2024-12-24] MEDS: GABAPENTIN 400 MG CAP PO SCH (10:58)
[2024-12-24] MEDS ORDERED: TICA90TA PO (12:57)
[2024-12-24] MEDS ORDERED: ROPI1TAB78 PO (12:57)
[2024-12-24] MEDS: HYDROcodone-ACET 5/325MG TAB PO PRN (14:08)
[2024-12-24] MEDS: PIPERACILLIN-TAZOB 3.375GM 100 ML IV ONE (16:28)
[2024-12-24 19:35] VITALS: PULSE 100; RESP 18; O2SAT 96
--- NOTE | 2024-12-24 20:25 | DVHPNRES ---
Progress Note Date Seen: Dec 24, 2024 Resident Creating Document: OLENA GRIMES RESIDENT Medical Necessity Reason Pt with a Central, PICC or Fol: No Subjective Review of Systems Hailey Lopez is a 69-year-old female with a complex medical history including recurrent urinary tract infections, osteoarthritis, CAD with history of NH on 2022 s/p stent placement currently on DAPT, congestive heart failure with preserved ejection fraction 55%, foot drop, hypertension, restless leg syndrome, and anxiety presented with complaints of urinary urgency, vomiting, chills, chest pain, shortness of breath, palpitations, and diarrhea. The chest pain is described as pressure-like, intermittent, radiating to both arms, and rated 5 out of 10 in intensity, with no clear triggers or relieving factors. She also notes a significant unintentional weight loss of 10 pounds and a marked decrease in appetite which started since using Ozempic last 2 years.Patient was in [facility] here evaluated by a physician there, who prescribed doxycycline. She is currently non-ambulatory due to foot drop and requires full assistance with activities of daily living. Past Medical History (PMH): recurrent urinary tract infections, osteoarthritis, coronary artery disease, congestive heart failure, foot drop, hypertension, and anxiety, restless leg syndrome Past Surgical History (PSH): Bilateral knee and hip replacement, spine surgery, shoulder surgery Family history (FH): History of pulmonary embolism in mother ETOH: Occasional alcohol use Smoking /Vaping: Patient denies smoking Recreational Drugs: Patient denies recreational drug use Residence: Lives with Home Medications: Bupropion, Arthrotec, gabapentin, Ativan, aspirin, Brilinta, baclofen Allergies: Phenyl acetate,erythromycin, latex PCP: Dr. Prado Patient seen and examined at bedside. Currently has no new complaints. Objective vital signs Vital Sign Date Time Temp Pulse Resp B/P (MAP) Pulse Ox O2 Delivery O2 Flow Rate FiO2 12/24/24 18:00 100 15 117/69 (85) 97 12/24/24 11:00 97.6 97.6 12/24/24 08:20 Room Air* 0 21 Total Intake and Output 12/23/24 12/23/24 12/24/24 15:00 23:00 07:00 Intake Total 300 ml Balance 300 ml medications Current Medications Medications Dose Ordered Sig/Kirsty Route Start Time Stop Time Status Last Admin Dose Admin Gabapentin 800 mg DAILY PO 12/24/24 10:00 12/24/24 10:58 800 MG Piperacillin Sod/ Tazobactam Sod 100 ml @ 25 mls/hr Q8H IV 12/24/24 08:00 12/24/24 16:24 25 MLS/HR Allopurinol 100 mg DAILY PO 12/24/24 10:00 12/24/24 10:57 100 MG Baclofen 10 mg BID PO 12/24/24 10:00 12/24/24 10:58 10 MG Acetaminophen/ Hydrocodone Bitart 1 tab TID PRN PO 12/24/24 07:30 12/24/24 14:08 1 TAB Patient Own Medication 1 tab QAM PO 12/25/24 07:00 Ticagrelor 90 mg BID PO 12/24/24 22:00 Examination General Appearance: Alert, Oriented X3, Cooperative, No acute distress HEENT: Atraumatic, PERRLA, EOMI, Mucous membrane dry Respiratory: Clear to auscultation, Normal air movement Cardiovascular: Regular rate, Normal S1, Normal S2, No murmurs, no chest wall tenderness Abdominal: Mild abdominal tenderness present, abdomen soft Extremities: No clubbing, No cyanosis, No edema, Normal pulses, No tenderness/swelling Skin: Rashes present on bilateral forearms, No breakdown, No significant lesion Neuro: Normal gait, Normal speech, Strength at 5/5 X4 ext, Normal tone, Sensation intact, Cranial nerves 3-12 NL, Reflexes 2+ Psych/Mental Status: Mental status NL, Mood NL laboratory and microbiology Laboratory Tests 12/24/24 05:13 Test 12/24/24 05:13 Range/Units Serum Glucose 98 74-106 mg/dL Problem List/Assessment/Plan Problem List/Assessment/Plan # Sepsis due to urinary tract infection/gastroenteritis -CT abdomen shows distended gallbladder with wire in lumbar 3- 4 -ultrasound abdomen shows hepatomegaly and steatosis - IV fluids - IV Zosyn - Follow-up blood,stool and urine cultures - Follow lactic acid levels - Proceed IV fluids with caution since patient has CHF, no active exacerbation #normocytic normochromic anemia hemoglobin 12.0, HCT 34.8 MCV 95.7, MCH 32.9 no signs symptoms of active bleeding # hyperuricemia uric acid level 9.3 #MEDHAT due to vasomotor nephropathy serum creatinine 1.04 avoid nephrotoxic drugs BMP # Cannabis use disorder Urine drug screening shows positive for cannabis More than 30 minute spent counseling # Osteoarthritis/chronic low-back pain - Diclofenac held due to MEDHAT - [place] -gabapentin Baclofen # Coronary artery disease with history of NH in 2022 - EKG, troponin negative -heart attack 2022 status post 1 stent Continue aspirin, Brilinta # HFpEF, no acute exacerbation - Held Lasix due to dehydration # Essential hypertension Hepatomegaly and steatosis Continue home medications Ultrasound of abdomen shows hepatomegaly and steatosis Lifestyle motor #Restless leg syndrome Continue ropinirole # History of anxiety Bupropion 150 mg q.a.m. # Gait instability # Bilateral foot drop # Morbid obesity, BMI 41.2 Goals of care discussions. 21 minute spent with patient and spouse. Code status. Case discussed with Dr. Arzola Plan discussed with: Patient, Spouse My Orders My Orders Orders - OLENA GRIMES RESIDENT Procedure Category Date Status Time Cardiac DIET 12/24/24 Transmitted Diet-2gna,Lofat,Lochol Lunch Date of Service: Dec 24, 2024 Billing Provider: NELLY ARZOLA MD Common Visit Codes: [id number] INP/OBS CARE(HIGH) OLENA GRIMES Dec 24, 2024 20:25 RADU AVILA Dec 25, 2024 09:18 NELLY ARZOLA MD Dec 27, 2024 15:41
[2024-12-24] MEDS: TICAGRELOR 90 MG TAB PO SCH (22:41)
[2024-12-25 02:33] VITALS: BP 115/57; PULSE 92; RESP 18; TEMP 99.1; O2SAT 97
[2024-12-25 03:20] VITALS: BP 115/57; PULSE 92; RESP 16; TEMP 99.1; O2SAT 97
[2024-12-25] MEDS ORDERED: ASPI81CH49 PO (04:39)
[2024-12-25] MEDS ORDERED: HYDR25TA88 PO (04:42)
[2024-12-25 05:00] VITALS: BP 110/61; PULSE 83; RESP 16; TEMP 98.7; O2SAT 97
[2024-12-25 06:39] LABS: Hematocrit 36.1 % (36.0-46.0); Hemoglobin 12.3 g/dL (12.2-16.2); Mean Corpuscular Hemoglobin 32.8 pg (28.0-32.0); Mean Corpuscular Volume 96.6 fL (80.0-100.0); Nucleated Red Blood Cells % 0.0 %
[2024-12-25 06:47] LABS: Chloride 107 mmol/L (98-107); Sodium 143 mmol/L (136-145)
[2024-12-25 06:48] LABS: Anion Gap 11 (5-15); Calcium 9.5 mg/dL (8.7-10.4); Carbon Dioxide 25 mmol/L (20-31)
[2024-12-25 06:53] LABS: BUN/Creatinine Ratio 19.4 (10.0-20.0); Blood Urea Nitrogen 19 mg/dL (9-23); Glucose 98 mg/dL (74-106)
[2024-12-25] MEDS: BUPROPION HCL 150 MG PO SCH (06:59)
[2024-12-25 07:01] LABS: Potassium 3.2 mmol/L (3.5-5.1)
[2024-12-25 08:00] VITALS: PULSE 86
[2024-12-25 08:34] VITALS: BP 131/69; PULSE 87; RESP 17; TEMP 97.6; O2SAT 98
[2024-12-25] MEDS: POTASSIUM CHL 20 Meq TABLET PO ONE (09:36)
[2024-12-25] MEDS: POTASSIUM CHL 20MEQ/100ML 100 ML IV ONE (09:37)
[2024-12-25] MEDS ORDERED: ATOR20TA50 PO (10:02)
[2024-12-25] MEDS ORDERED: CIPR500T4 PO (11:34)
[2024-12-25 12:33] VITALS: BP 123/67; PULSE 92; RESP 17; TEMP 98.3; O2SAT 99
--- NOTE | 2024-12-25 14:39 | DVHDSRES ---
Discharge Summary Date of Admission Resident Creating Document: OLENA GRIMES RESIDENT Dec 23, 2024 at 23:24 Date of Discharge: Dec 25, 2024 Labs/Diagnostic Data: Laboratory Results Test 12/25/24 05:12 12/24/24 07:09 12/24/24 05:13 12/23/24 22:20 White Blood Count 8.3 10^3/uL (4.4-10.8) Red Blood Count 3.74 10^6/uL (4.0-5.20) Hemoglobin 12.3 g/dL (12.2-16.2) Hematocrit 36.1 % (36.0-46.0) Mean Corpuscular Volume 96.6 fL (80.0-100.0) Mean Corpuscular Hemoglobin 32.8 pg (28.0-32.0) Mean Corpuscular Hemoglobin Concent 33.9 g/dL (32.0-36.0) Red Cell Distribution Width 14.0 % (11.8-14.3) Platelet Count 311 10^3/uL (140-450) Mean Platelet Volume 9.0 fL (6.9-10.8) Neutrophils (%) (Auto) 70.2 % (37.0-80.0) Lymphocytes (%) (Auto) 20.3 % (10.0-50.0) Monocytes (%) (Auto) 7.8 % (0.0-12.0) Eosinophils (%) (Auto) 0.8 % (0.0-7.0) Basophils (%) (Auto) 0.9 % (0.0-2.0) Neutrophils # (Auto) 5.8 10 ^3/uL (1.6-8.6) Lymphocytes # (Auto) 1.7 10 ^3/uL (0.4-5.4) Monocytes # (Auto) 0.6 10 ^3/uL (0-1.3) Eosinophils # (Auto) 0.1 10 ^3/uL (0-0.8) Basophils # (Auto) 0.1 10 ^3/uL (0-0.2) Nucleated Red Blood Cells 0.0 % Sodium Level 143 mmol/L (136-145) Potassium Level 3.2 mmol/L (3.5-5.1) Chloride Level 107 mmol/L (98-107) Carbon Dioxide Level 25 mmol/L (20-31) Anion Gap 11 (5-15) Blood Urea Nitrogen 19 mg/dL (9-23) Creatinine 0.98 mg/dL (0.550-1.02) Glomerular Filtration Rate Calc 62 mL/min (>90) BUN/Creatinine Ratio 19.4 (10.0-20.0) Serum Glucose 98 mg/dL (74-106) Calcium Level 9.5 mg/dL (8.7-10.4) Vitamin B12 Level 1606 pg/mL (211-911) Vitamin D 25-Hydroxy 30.7 ng/mL (30.0-100) Thyroid Stimulating Hormone (TSH) 0.78 uIU/mL (0.55-4.78) Lactic Acid Level 1.1 mmol/L (0.4-2.0) Hemoglobin A1c 5.0 % A1C (<5.7) Uric Acid 9.3 mg/dL (3.1-7.8) Total Bilirubin 0.5 mg/dL (0.2-1.0) Direct Bilirubin 0.2 mg/dL (<0.3) Aspartate Amino Transferase (AST) 11 U/L (13-40) Alanine Aminotransferase (ALT) < 9 U/L (7-40) Alkaline Phosphatase 92 U/L (46-116) Total Protein 6.7 g/dL (5.7-8.2) Albumin 4.1 g/dL (3.2-4.8) Urine Color Yellow (Yellow) Urine Clarity Clear (Clear) Urine pH 5.5 (5.0-9.0) Urine Specific [place] 1.034 (1.001-1.035) Urine Protein Trace (Negative) Urine Ketones 1+ (Negative) Urine Blood Negative /uL (Negative) Urine Nitrite Negative (Negative) Urine Bilirubin Negative (Negative) Urine Urobilinogen Normal mg/dL (Negative) Urine Leukocyte Esterase 1+ /uL (Negative) Urine RBC 4 /hpf (0 - 4) Urine Microscopic WBC 3 /HPF (0-5) Urine Squamous Epithelial Cells Few /hpf (<5) Urine Calcium Oxalate Crystals Few (None Seen) Urine Bacteria None seen /hpf (None Seen) Urine Mucus Few (None Seen) Urine Glucose Normal mg/dL (Normal) Urine Opiates Screen Neg (NEGATIVE) Urine Fentanyl Screen Neg (NEGATIVE) Urine Barbiturates Screen Neg (NEGATIVE) Urine Phencyclidine Screen Neg (NEGATIVE) Urine Amphetamines Screen Neg (NEGATIVE) Urine Benzodiazepines Screen Neg (NEGATIVE) Urine Cocaine Screen Neg (NEGATIVE) Urine Cannabinoids Screen Pos (NEGATIVE) Test 12/23/24 20:40 12/23/24 16:59 Troponin I High Sensitivity 10 ng/L (</=34) B-Type Natriuretic Peptide 26.77 pg/mL (0-100) Lipase 22 U/L (12-53) Other Laboratory Tests 12/25/24 05:12 Brief Hx & Hospital Course: Hailey Lopez is a 69-year-old female with a complex medical history including recurrent urinary tract infections, osteoarthritis, CAD with history of [place] on 2022 s/p stent placement currently on DAPT, congestive heart failure with preserved ejection fraction 55%, foot drop, hypertension, restless leg syndrome, and anxiety presented with complaints of urinary urgency, vomiting, chills, chest pain, shortness of breath, palpitations, and diarrhea. The chest pain is described as pressure-like, intermittent, radiating to both arms, and rated 5 out of 10 in intensity, with no clear triggers or relieving factors. She also notes a significant unintentional weight loss of 10 pounds and a marked decrease in appetite which started since using Ozempic last 2 years.Patient was in [facility] here evaluated by a physician there, who prescribed doxycycline. She is currently non-ambulatory due to foot drop and requires full assistance with activities of daily living. Past Medical History (PMH): recurrent urinary tract infections, osteoarthritis, coronary artery disease, congestive heart failure, foot drop, hypertension, and anxiety, restless leg syndrome Past Surgical History (PSH): Bilateral knee and hip replacement, spine surgery, shoulder surgery Family history (FH): History of pulmonary embolism in mother ETOH: Occasional alcohol use Smoking /Vaping: Patient denies smoking Recreational Drugs: Patient denies recreational drug use Residence: Lives with Home Medications: Bupropion, Arthrotec, gabapentin, Ativan, aspirin, Brilinta, baclofen Allergies: Phenyl acetate,erythromycin, latex Veterans' Coordinator: Dr. Prado Hospital course: Patient admitted sepsis due to urinary tract infection. CT abdomen and pelvis shows no acute abdominal or pelvic finding, hepatomegaly, moderate nonspecific gallbladder distention. Hardware within the lumbar spine status post L3-L4 posterior lumbar interbody fusion with L4-L5 interbody disc spacer. No evidence of hardware complication. Hardware within the bilateral hips status post arthroplasty with associated beam hardening artifact, partially obscuring the findings of the pelvis. ultrasound liver-Hepatomegaly/hepatic steatosis. patient treated conservatively with IV antibiotic and IV fluid. blood cultures x2 negative for any growth. patient symptoms significantly improved. During hospital stay, treated both acute and chronic condition. patient currently denies any fever, SOB, chest pain, headache, abdominal pain, dysuria or any other acute distress. patient discharged with 2 weeks of p.o. ciprofloxacin antibiotic. Patient is hemodynamically stable for discharge. The patient has received maximum benefits from inpatient treatment. Time was given to answer patient/ parents questions and concerns in Layman terms. patient verbalized understanding and agree with treatment and follow-up. Patient was recommended to return to the ED if she experiences any worsening symptoms such as, but not limited to current symptoms. Continue current home medication. follow-up with discharge Clinic within 1 weeks on Tuesday morning and follow up with PCP and cardiology within 2 weeks after discharge . Patient educated and advised to resume home medication. Physical examination Constitutional: No: Fever, Chills, Sweats, Weakness, Malaise, Other Eyes: No: Pain, Vision change, Conjunctivae inflammation, Eyelid inflammation, Other, Redness ENT: No: Ear pain, Ear discharge, Nose pain, Nose discharge, Nose congestion, Mouth pain, Mouth swelling, Throat pain, Throat swelling, Other Respiratory: Shortness of breath; No: Cough, Dry, SOB with excertion, Wheezing, Hemoptysis, Pleuritic Pain, Sputum, Wheezing, Other Cardiovascular: No: Chest Pain, Palpitations, Orthopnea, Paroxysmal Noc. Dyspnea, Edema, Lt Headedness, Other Gastrointestinal: No: Nausea, Vomiting, Abdominal Pain, Diarrhea, Constipation, Melena, Hematochezia, Other Genitourinary: No Dysuria, No Frequency, No Incontinence, No Hematuria, No Retention, No Other Musculoskeletal: No: other, neck pain, shoulder pain, arm pain, positive for back pain, bilateral foot drop Skin: No: Rash, Lesions, Jaundice, Bruising, Other Neurological: No: Weakness, Numbness, Incoordination, Change in speech, Confusion, Seizures, Other Case discussed with Dr. Arzola, patient and Nurse. Operations or Procedures ORDERING PHYSICIAN: SHOBHA EVANS MD PROCEDURE(s): CXRP - CHEST PORTABLE REASON: cp ORDER NUMBER(s): [id number], ACCESSION NUMBER(s): [id number] EXAM: XY CHEST PORTABLE HISTORY: cp TECHNIQUE: 1 view of the chest COMPARISON: XR CHEST 2 VIEW on DOS: 07/16/24 FINDINGS/IMPRESSION: LUNGS: No pleural effusion, consolidation, or pneumothorax MEDIASTINUM: Unremarkable BONES: No acute osseous abnormality. Cervicothoracic fusion OTHER: None ATED BY: WALTER CASTILLO MD DICTATED DATE/TIME: 12/23/24 1851 ORDERING PHYSICIAN: SU KENNEDY PROCEDURE(s): ABPL - CT AB PEL WO CON-NO ORAL OR IV REASON: abd pain and diarhhea ORDER NUMBER(s): [id number], ACCESSION NUMBER(s): [id number] Exam: CT CT AB PEL WO CON-NO ORAL OR IV History: abd pain and diarhhea Comparison Study: XR PELVIS 1-2 VIEW on DOS: 07/16/24, CT CT AB PEL WITH IV CON ONLY on DOS: 02/24/24, CT CT AB PEL WO CON-NO ORAL OR IV on DOS: 01/19/24 Technique: Multidetector spiral CT of the abdomen was performed from lung bases to pubic symphysis. Imaging was performed without IV contrast. Axial, coronal and sagittal multiplanar reformats were obtained from the axial data set by the technologist. Radiation Dose : 1. Abdomen/Pelvis: CTDIvol 26.54 mGy, DLP 1034.49 mGy*cm. Findings: Evaluation of solid organs is limited due to lack of intravenous contrast use. Lung Bases: No acute or significant lung base finding. Normal heart size. No pleural effusion. Trace pericardial effusion. Liver: The liver is enlarged, measuring 20.7 cm in craniocaudal dimension. No focal lesions. Gallbladder and Biliary Tree: Moderate gallbladder distention. Spleen: Unremarkable Pancreas: The pancreas is grossly normal in appearance. Adrenal Glands: Unremarkable Kidneys: Kidneys are grossly normal without calculi or hydronephrosis. 1.3 cm exophytic right interpolar renal cortical cyst. Bladder: Grossly unremarkable for degree of distention. Bowel: The stomach is grossly normal in appearance. Small bowel and colon are normal in caliber and distribution. The appendix is normal. Ascites: Absent Lymphadenopathy: No mesenteric, retroperitoneal or periportal lymphadenopathy. Abdominal Wall and Mesentery: Unremarkable. Vasculature: The visualized abdominal aorta is normal in size and caliber. Atherosclerotic vascular calcifications. Evaluation of abdominal and pelvic vessels is limited due to lack of intravenous contrast. Pelvic Organs: Unremarkable Musculoskeletal: No aggressive focal bony lesions, acute fractures or dislocation. Hardware within the lumbar spine status post L3-L4 posterior lumbar interbody fusion with L4-L5 interbody disc spacer. No evidence of hardware complication. Hardware within the bilateral hips status post arthroplasty with associated beam hardening artifact, partially obscuring the findings of the pelvis. IMPRESSION: 1. No acute abdominal or pelvic findings. 2. Hepatomegaly. 3. Moderate nonspecific gallbladder distention. Radiation optimization: All CT scans at this facility use at least one of these dose optimization techniques: automated exposure control mA and/or kV adjustment per patient size (includes targeted exams where dose is matched to clinical indication) or iterative reconstruction. ATED BY: OH ALLEN MD DICTATED DATE/TIME: 12/24/24 0138 ORDERING PHYSICIAN: SU KENNEDY PROCEDURE(s): LIVUS - LIVER REASON: hepatomegaly ORDER NUMBER(s): [id number], ACCESSION NUMBER(s): [id number] INDICATION: hepatomegaly TECHNIQUE: Multiple real-time sonographic images of the abdomen were obtained. COMPARISON: None FINDINGS: The liver is heterogeneous in echogenicity. The liver measures 20cm. No intrahepatic biliary ductal dilatation is noted. The gallbladder wall measures 0.2 cm and is unremarkable. No gallstones or sludge is seen. The common duct measures 0.3 cm and is unremarkable. No pericholecystic fluid is noted. The right kidney measures 8cm. No hydronephrosis. The pancreas is not well visualized due to obscuration from bowel gas. The visualized portions of the IVC and aorta are grossly unremarkable. IMPRESSION: Hepatomegaly/hepatic steatosis. ATED BY: WALTER CASTILLO MD DICTATED DATE/TIME: 12/24/24 9415 Condition at Discharge: Stable Final Diagnosis/Problems List # Sepsis due to urinary tract infection #MEDHAT due to vasomotor nephropathy # Hyperuricemia #Normocytic normochromic anemia # Coronary artery disease with history of IN in 2022 # Osteoarthritis/chronic low-back pain # Cannabis use disorder # HFpEF, no acute exacerbation #Restless leg syndrome # History of anxiety ## Gait instability # Morbid obesity Discharge Disposition: Home Discharge Instruct/Medications Diet: Cardiac 2g Na,low cholest Activity: No Restrictions, As Tolerated Follow Up/Referral: PCP Follow-up with cardiology Follow-up with outpatient clinic within 2 weeks after discharge, Tuesday morning Scheduled Aspirin (Aspirin), 81 MG PO DAILY, (Reported) Atorvastatin Calcium (Atorvastatin Calcium), 40 MG PO DAILY Baclofen (Baclofen), 1 TAB PO BID, (Reported) Bupropion Hcl (Bupropion Hcl Sr), 1 TAB PO QAM, (Reported) Ciprofloxacin Hcl (Ciprofloxacin Hcl), 1 TAB PO BID Phenazopyridine HCl (Phenazopyridine Hydrochlo), 200 MG PO TID Ropinirole Hydrochloride (Ropinirole Hcl), 1 MG PO BID, (Reported) Ticagrelor Base (Brilinta), 90 MG PO BID, (Reported) Scheduled PRN Hydralazine Hcl (Hydralazine Hcl), 25 MG PO for SBP>150, (Reported) Miscellaneous Medications Gabapentin (Gabapentin), TAB PO, (Reported) Hydrocodone-Acetaminophen (Hydrocodone/Acetaminophen 5-325 mg), (Reported) Lorazepam (Ativan Tablet), TAB PO, (Reported) Discontinued Medications Ciprofloxacin Hcl (Cipro), 1 TAB PO BID Discharge Statement: "Patient was advised to return to the ER or call 911 if any headaches, dizziness, shortness of breath, chest pain, abdominal pain, bleeding, fevers, or worsening of medical condition. Patient was counseled about treatment plan, medications, possible side effects, patientverbalized understanding. All questions were answered to the best of my ability. This discharge took greater then 30 minutes in planning, reviewing documentation, counseling the patient, and discussing with other team members." ASSESSMENT ASSESSMENT Assessment Sepsis secondary to urinary tract infection OLENA GRIMES RESIDENT Dec 25, 2024 14:39
== END 2024-12-25 16:06 | disposition home or self-care (01) | DRG 871 ==
LOC: EDBD 16:37 → EDUNIT# 16:37 → ER 16:42 → OVERFLOW 23:24 → TELE-CENTR 12-25 03:04
PROVIDERS: ADMIT Student in an Organized Health Care Education/Training Program; ATTEND Student in an Organized Health Care Education/Training Program
DX: A41.9 Sepsis, unspecified organism (principal); N17.0 Acute kidney failure with tubular necrosis; N39.0 Urinary tract infection, site not specified; I50.32 Chronic diastolic (congestive) heart failure; Z68.41 Body mass index [BMI] 40.0-44.9, adult; G25.81 Restless legs syndrome; E79.0 Hyperuricemia without signs of inflammatory arthritis and tophaceous disease; K52.9 Noninfective gastroenteritis and colitis, unspecified; E66.01 Morbid (severe) obesity due to excess calories; I25.10 Atherosclerotic heart disease of native coronary artery without angina pectoris; F41.9 Anxiety disorder, unspecified; K82.8 Other specified diseases of gallbladder; D64.9 Anemia, unspecified; R26.9 Unspecified abnormalities of gait and mobility; M19.09 Primary osteoarthritis, other specified site; I25.2 Old myocardial infarction; Z88.8 Allergy status to other drugs, medicaments and biological substances; Z91.040 Latex allergy status; Z79.2 Long term (current) use of antibiotics; Z79.899 Other long term (current) drug therapy; Z87.442 Personal history of urinary calculi
CPT/HCPCS: 36415; 71045; 74176; 76705; 80048; 80053; 80307; 81001; 82248; 82306; 82607; 83036; 83605; 83690; 83880; 84443; 84484; 84550; 85025; 87040; 93005; G0378; J2543; J3480

== ENCOUNTER → 2024-12-28 | Outpatient (CLI) | payer MEDICARE ==
[~2024-12-28] MED LIST changes: +ASPI81CH49 PO; +ATOR20TA50 PO; +BACL10TA PO; +BUPR-60 PO; -CIPR-173 PO; +CIPR500T4 PO; +GABA800T97 PO; +HYDR1TAB97; +HYDR25TA88 PO; +LORA-1121 PO; +ROPI1TAB78 PO; +TICA90TA PO
[2024-12-28 11:20] LABS: Urine Protein, UAD TRACE (Negative)
== END | disposition home or self-care (01) ==
LOC: LAB 10:21
PROVIDERS: ATTEND Student in an Organized Health Care Education/Training Program
DX: N39.0 Urinary tract infection, site not specified (principal)
CPT/HCPCS: 81001